=== PATIENT | male | born 1995 | race African-American/Black ===

== ENCOUNTER 2019-07-19 10:29 | Emergency (ER) | payer SELFPAY ==
[~2019-07-19] VITALS: Ht 182.9 cm; Wt 67.1 kg
[2019-07-19] MEDS ORDERED: PANTOPRAZOLE 40 MG 10ML VIAL IV STA (11:01)
[2019-07-19] MEDS ORDERED: ONDANSETRON HCL INJ 2MG/ML 2ML 2 MG/ML VIAL IV STA (11:01)
[2019-07-19] MEDS ORDERED: SODIUM CHLORIDE 0.9% 1000ML 1,000 ML ONE ×2 (11:16→13:56)
[2019-07-19] MEDS ORDERED: ONDANSETRON HCL INJ 2MG/ML 2ML 2 MG/ML VIAL ONE (11:16)
[2019-07-19] MEDS ORDERED: PANTOPRAZOLE 40 MG 10ML VIAL ONE (11:16)
[2019-07-19] MEDS: SODIUM CHLORIDE 0.9% 1000ML 1,000 ML IV SCH ×2 (11:20→13:52)
--- NOTE | 2019-07-19 11:57 | Diagnostic Imaging Report ---
EXAM: CT of the abdomen and pelvis WITHOUT contrast HISTORY: Abdominal pain, nausea, vomiting, diarrhea COMPARISON: None available. TECHNIQUE: The abdomen and pelvis were scanned utilizing a multidetector helical scanner. Coronal and sagittal reformats are available. PROTOCOL: Routine IV CONTRAST: None, which limits sensitivity and specificity of evaluation of the soft tissues and vascular structures. ORAL CONTRAST: None, which limits sensitivity and specificity of evaluation of the bowel. RADIATION DOSE: Total DLP: 347.47 mGy*cm Estimated effective dose: (DLP x 0.015 x size factor) Dose modulation, iterative reconstruction, and/or weight based adjustment of the mA/kV was utilized to reduce the radiation dose to as low as reasonably achievable. COMPLICATIONS: None FINDINGS: LOWER THORAX: Bibasilar atelectasis. ABDOMEN: Paucity of intra-abdominal and intra-pelvic fat partially limits the evaluation. HEPATOBILIARY: No definite focal hepatic lesions. No biliary ductal dilatation. The gallbladder is unremarkable. SPLEEN: No splenomegaly. PANCREAS: No focal masses or ductal dilatation. ADRENALS: No adrenal nodule. KIDNEYS/URETERS: No hydronephrosis, stones, or solid mass lesion identified. PELVIC ORGANS/BLADDER: The urinary bladder is decompressed, which limits evaluation. PERITONEUM / RETROPERITONEUM: No free air or fluid identified. Nonspecific fat-containing. GI TRACT: On limited evaluation of the gastrointestinal tract, no dilation or wall thickening identified. The appendix is not definitively visualized, but there is no specific evidence of acute appendicitis. LYMPH NODES: No pathologically enlarged lymph noted identified. Apparent nonspecific retroperitoneal and mesenteric lymph nodes. VESSELS: Appear unremarkable. BONES and JOINTS: No aggressive osseous lesion or acute fracture. SOFT TISSUES: Unremarkable. IMPRESSION: 1. No calcified renal stone or hydronephrosis. 2. Small nonspecific retroperitoneal and mesenteric lymph nodes along with mesenteric fat stranding, consider an evolving infectious or inflammatory process. 3. Further evaluation is limited secondary to the paucity of intra-abdominal fat, intrapelvic fat, and absence of intravenous contrast. Signed by: Dr. George Jean D.O., M.M.M. on 07/19/2019 11:54 AM
[2019-07-19] MEDS ORDERED: IOPAMIDOL 370 MG/ML 200 ML INFUS..BTL INJ ONE (14:51)
[2019-07-19] MEDS ORDERED: SODIUM CHLORIDE 0.9% 50ML 50 ML ONE (14:52)
--- NOTE | 2019-07-19 15:51 | Diagnostic Imaging Report ---
EXAM: CT of the abdomen and pelvis WITH contrast HISTORY: Vomiting and diarrhea, nausea COMPARISON: CT of the pelvis without contrast from earlier the same date. TECHNIQUE: The abdomen and pelvis were scanned utilizing a multidetector helical scanner. Coronal and sagittal reformats are provided. PROTOCOL: Routine IV CONTRAST: 100 cc of Isovue-[id number]. ORAL CONTRAST: None, which limits sensitivity and specificity of the exam. RADIATION DOSE: Total DLP: 462.43 mGy*cm Estimated effective dose: (DLP x 0.015 x size factor) Dose modulation, iterative reconstruction, and/or weight based adjustment of the mA/kV was utilized to reduce the radiation dose to as low as reasonably achievable. COMPLICATIONS: None FINDINGS: LOWER THORAX: Slightly increased bibasilar atelectasis. ABDOMEN: Paucity of intra-abdominal and intra-pelvic fat partially limits the evaluation. HEPATOBILIARY: No definite focal hepatic lesions. No biliary ductal dilatation. The gallbladder is predominantly contracted. SPLEEN: No splenomegaly. PANCREAS: No focal masses or ductal dilatation. ADRENALS: No adrenal nodule. KIDNEYS/URETERS: No hydronephrosis, stones, or solid mass lesion identified. PELVIC ORGANS/BLADDER: The urinary bladder is remains decompressed, which limits evaluation. PERITONEUM / RETROPERITONEUM: No free air or fluid identified. Nonspecific fat-containing. GI TRACT: On limited evaluation of the gastrointestinal tract, no dilation or wall thickening identified. The appendix is not definitively visualized, but there is no specific evidence of acute appendicitis. LYMPH NODES: No pathologically enlarged lymph noted identified. Nonspecific small retroperitoneal and mesenteric lymph nodes. VESSELS: Unremarkable. BONES and JOINTS: No aggressive osseous lesion or acute fracture. SOFT TISSUES: Unremarkable. IMPRESSION: 1. Small nonspecific retroperitoneal and mesenteric lymph nodes along with mesenteric fat stranding, consider an evolving infectious or inflammatory process. 2. No bowel obstruction, ileus, or intra-abdominal/intrapelvic abscess. 3. Bibasilar lower lobe atelectasis, in the appropriate setting superimposed multifocal pneumonia or aspiration may be a consideration. Recommend correlation with routine PA and lateral chest radiographs for further evaluation. Signed by: Dr. George Jean D.O., M.M.M. on 07/19/2019 3:47 PM
[2019-07-19] MEDS ORDERED: CIPROFLOXACIN 400 MG/D5W 200ML 200 ML IV ONE ×2 (16:15→16:35)
[2019-07-19] MEDS ORDERED: METRONIDAZOLE 500MG/NS 100ML 100 ML IV ONE ×2 (16:15→16:35)
[2019-07-19 18:02] VITALS: BP 121/71
== END 2019-07-19 18:17 | disposition home or self-care (01) ==
LOC: FSED 10:29
DX: R11.2 Nausea with vomiting, unspecified (principal); R10.13 Epigastric pain; R19.7 Diarrhea, unspecified; A04.9 Bacterial intestinal infection, unspecified; A09 Infectious gastroenteritis and colitis, unspecified; E86.0 Dehydration
CPT/HCPCS: 36415; 74176; 74177; 80053; 80076; 81003; 83690; 85025; 87400; 96374; 96375; 99284; C9113; J0744; J2405; J7030; Q9967